=== PATIENT | male | born 1935 | race Caucasian/White ===

== ENCOUNTER 2017-03-17 13:06 | Emergency (ER) | payer MEDICARE, OTHER ==
[~2017-03-17] VITALS: Ht 182.8 cm; Wt 99.8 kg
[~2017-03-17 13:06] MED LIST: AMOXICILLIN500 MG PO; FLOMAX0.4 MG PO; HYDROXYZINE HYD25 MG PO; LEVOFLOXACIN500 MG PO; PERCOCET 325 MG1 TA2 PO; ROBITUSSIN AC 110 ML PO; ZITHROMAX250 MG PO
== END 2017-03-17 15:20 | disposition home or self-care (01) ==
LOC: ED 13:06
DX: S66.912A Strain of unspecified muscle, fascia and tendon at wrist and hand level, left hand, initial encounter (principal); Z91.041 Radiographic dye allergy status; Z79.899 Other long term (current) drug therapy; X58.XXXA Exposure to other specified factors, initial encounter; Y93.89 Activity, other specified; Y92.89 Other specified places as the place of occurrence of the external cause; Y99.8 Other external cause status

== ENCOUNTER 2017-12-08 09:06 | Emergency (ER) | payer MEDICARE, OTHER ==
[~2017-12-08] VITALS: Wt 102.1 kg
[2017-12-08 10:18] LABS: BASO # 0.1 10*3/uL (0.0-0.1); BASO % 0.7 % (0.0-1.0); EOS # 0.8 10*3/uL (0.0-0.4); EOS % 6.7 % (1.0-4.0); HEMOGLOBIN 15.8 g/dl (14.0-18.0); LYMPH # 3.2 10*3/uL (1.3-4.4); LYMPH % 28.3 % (27.0-41.0); MEAN CORPUSCULAR HGB 30.3 pg (27.0-31.0); MEAN CORPUSCULAR HGB CONC 33.6 g/dl (33.0-37.0); MEAN PLATELET VOLUME 9.8 fl (9.6-12.3); MONO # 1.1 10*3/uL (0.1-1.0); MONO % 9.9 % (3.0-9.0); NEUT # 6.1 10*3/uL (2.3-7.9); PLATELET COUNT AUTOMATED 358 10*3/uL (130-400); RED BLOOD COUNT 5.22 10*6/uL (4.50-5.90); RED CELL DISTRI WIDTH 15.5 % (0-14.5); WHITE BLOOD COUNT 11.3 10*3/uL (4.8-10.8)
[2017-12-09 13:05] LABS: t-TRANSGLUTAMINASE (tTG) IGA <2 U/mL (0-3); t-TRANSGLUTAMINASE (tTG) IgG 3 U/mL (0-5)
[2017-12-09 15:09] LABS: ENDOMYSIAL ANTIBODY IgA Negative (Negative)
== END 2017-12-08 10:38 | disposition home or self-care (01) ==
LOC: ED 09:06
PROVIDERS: Nurse Practitioner Family
DX: R21 Rash and other nonspecific skin eruption (principal); Z91.041 Radiographic dye allergy status; Z79.899 Other long term (current) drug therapy

== ENCOUNTER 2019-08-14 16:02 | Emergency (ER) | payer MEDICARE, OTHER ==
[~2019-08-14] VITALS: Ht 180.3 cm; Wt 99.8 kg
[2019-08-14 16:43] LABS: HEMATOCRIT 48.6 % (42.0-52.0); MEAN CELL VOLUME 90.8 fl (80.0-94.0); MEAN CORPUSCULAR HGB 29.9 pg (27.0-31.0); MEAN CORPUSCULAR HGB CONC 32.9 g/dl (33.0-37.0); MEAN PLATELET VOLUME 9.4 fl (9.6-12.3); PLATELET COUNT AUTOMATED 400 10*3/uL (130-400); RED BLOOD COUNT 5.35 10*6/uL (4.50-5.90); RED CELL DISTRI WIDTH 15.3 % (0-14.5); WHITE BLOOD COUNT 10.8 10*3/uL (4.8-10.8)
[2019-08-14 16:53] LABS: ACT PARTIAL THROMBO TIME 26.8 SECONDS (20.0-32.1); INTERNATIONAL NORM RATIO 0.9 (2.0-3.5)
[2019-08-14 17:01] LABS: ALBUMIN 3.5 gm/dl (3.1-4.5); ALKALINE PHOSPHATASE 67 U/L (45-117); BUN 29 mg/dl (7-24); CHLORIDE 104 mmol/L (98-107); CREATININE 1.96 mg/dL (0.70-1.30); POTASSIUM 4.7 mmol/L (3.5-5.1); SGOT/AST 20 IU/L (3-35); SGPT/ALT 28 U/L (12-78); SODIUM 136 mmol/L (136-145); TOTAL PROTEIN 7.9 gm/dL (6.4-8.2)
[2019-08-14 17:02] LABS: TROPONIN I < 0.015 ng/ml (<0.045)
[2019-08-14 17:19] LABS: PLATELET SUFFICIENCY NORMAL (NORMAL); TOTAL CELLS COUNTED 100 #CELLS
[2019-08-14] MEDS ORDERED: MECLIZINE HCL25 M2 PO (18:40)
== END 2019-08-14 18:51 | disposition home or self-care (01) ==
LOC: ED 16:02
PROVIDERS: Physician Assistant
DX: R42 Dizziness and giddiness (principal); R79.1 Abnormal coagulation profile; Z91.041 Radiographic dye allergy status; Z79.899 Other long term (current) drug therapy; Z90.5 Acquired absence of kidney

== ENCOUNTER → 2020-03-05 | Outpatient (CLI) | payer MEDICARE, OTHER ==
[~2020-03-05] MED LIST changes: +MECLIZINE HCL25 M2 PO
== END | disposition home or self-care (01) ==
LOC: RAD 09:44
DX: R05 Cough (principal); I70.0 Atherosclerosis of aorta; I77.819 Aortic ectasia, unspecified site; Q25.46 Tortuous aortic arch

== ENCOUNTER → 2020-04-04 | Outpatient (CLI) | payer MEDICARE, OTHER | END | disposition home or self-care (01) | LOC: CT 13:50 | DX: J98.11 Atelectasis (principal); R05 Cough ==

== ENCOUNTER → 2020-10-08 | Outpatient (CLI) | payer MEDICARE, OTHER ==
[2020-10-08 10:08] LABS: CREATININE 1.92 mg/dL (0.70-1.30)
== END | disposition home or self-care (01) ==
LOC: LAB 09:37 → CT 10:00
PROVIDERS: ATTEND Internal Medicine Critical Care Medicine
DX: Z01.812 Encounter for preprocedural laboratory examination (principal); R59.0 Localized enlarged lymph nodes; N28.89 Other specified disorders of kidney and ureter

== ENCOUNTER → 2021-10-24 | Outpatient (CLI) | payer MEDICARE, OTHER ==
[2021-10-24 10:52] LABS: CREATININE 1.91 mg/dL (0.70-1.30)
== END | disposition home or self-care (01) ==
LOC: LAB 10:26 → CT 11:00
PROVIDERS: Radiology Diagnostic Radiology; ATTEND Internal Medicine Critical Care Medicine
DX: J98.11 Atelectasis (principal); R59.9 Enlarged lymph nodes, unspecified

== ENCOUNTER → 2022-05-15 | Outpatient (CLI) | payer MEDICARE, OTHER | END | disposition home or self-care (01) | LOC: CT 11:00 | PROVIDERS: ATTEND Internal Medicine Critical Care Medicine | DX: R91.1 Solitary pulmonary nodule (principal); I51.7 Cardiomegaly; I25.10 Atherosclerotic heart disease of native coronary artery without angina pectoris ==

== ENCOUNTER → 2024-02-25 | Outpatient (CLI) | payer MEDICARE, OTHER | END | disposition home or self-care (01) | LOC: US 14:30 | PROVIDERS: ATTEND Internal Medicine Nephrology | DX: N28.1 Cyst of kidney, acquired (principal); N18.30 Chronic kidney disease, stage 3 unspecified; R03.0 Elevated blood-pressure reading, without diagnosis of hypertension; R63.4 Abnormal weight loss; K57.30 Diverticulosis of large intestine without perforation or abscess without bleeding; N32.89 Other specified disorders of bladder; N28.89 Other specified disorders of kidney and ureter; Z96.0 Presence of urogenital implants ==

== ENCOUNTER 2024-10-13 02:25 | Emergency (ER) | payer MEDICARE, OTHER ==
[~2024-10-13] VITALS: Ht 177.8 cm; Wt 83.9 kg
[2024-10-13 02:47] LABS: BASO # 0.1 10*3/uL (0.0-0.1); BASO % 0.6 % (0.0-1.0); EOS # 0.7 10*3/uL (0.0-0.4); EOS % 7.9 % (1.0-4.0); HEMATOCRIT 35.9 % (42.0-52.0); MEAN CELL VOLUME 93.7 fl (80.0-94.0); MEAN CORPUSCULAR HGB 30.8 pg (27.0-31.0); MEAN CORPUSCULAR HGB CONC 32.9 g/dl (33.0-37.0); MEAN PLATELET VOLUME 9.8 fl (9.6-12.3); MONO # 1.4 10*3/uL (0.1-1.0); MONO % 16.6 % (3.0-9.0); NEUT # 2.7 10*3/uL (2.3-7.9); NEUT % 32.6 % (47.0-73.0); PLATELET COUNT AUTOMATED 294 10*3/uL (130-400); RED BLOOD COUNT 3.83 10*6/uL (4.50-5.90); WHITE BLOOD COUNT 8.2 10*3/uL (4.8-10.8)
[2024-10-13 03:09] LABS: ALKALINE PHOSPHATASE 70 U/L (46-116); BUN 38 mg/dl (9-23); CHLORIDE 106 mmol/L (98-107); POTASSIUM 4.6 mmol/L (3.4-5.1); SGPT/ALT 18 U/L (5-49); TOTAL PROTEIN 7.6 gm/dL (6.0-8.0)
[2024-10-13] MEDS ORDERED: methylPREDNISolone sod succ 125 MG VIAL IM ONE (03:55)
[2024-10-13] MEDS ORDERED: diphenhydrAMINE hydrochloride 25 MG CAP PO ONE (03:55)
== END 2024-10-13 04:08 | disposition home or self-care (01) ==
LOC: ED 02:25
PROVIDERS: Internal Medicine
DX: Q80.9 Congenital ichthyosis, unspecified (principal); Z91.041 Radiographic dye allergy status